=== PATIENT | female | born 1995 | race Caucasian/White ===

== ENCOUNTER 2016-12-03 20:38 | Observation (INO) | payer MEDICAID ==
[~2016-12-03] VITALS: Ht 160 cm; Wt 59.9 kg
[~2016-12-03 20:38] MED LIST: PREN-95 PO
[2016-12-03] MEDS ORDERED: TERBUTALINE SULFATE 1MG/ML VIAL SUBCUT NR (21:10)
[2016-12-03] MEDS ORDERED: LACTATED RINGERS 1,000 ML IV SCH (21:15)
[2016-12-03] MEDS ORDERED: CEFAZOLIN 2,000 MG in DEXT 5% WATER 100 ML IV SCH (21:30)
[2016-12-03 21:35] LABS: CLARITY URINE CLOUDY (CLEAR); COLOR URINE YELLOW (YELLOW); GLUCOSE URINE NEGATIVE (NEGATIVE); KETONES URINE TRACE (NEGATIVE); LEUKOCYTE ESTERASE URINE TRACE (NEGATIVE); NITRITE URINE NEGATIVE (NEGATIVE); OCCULT BLOOD URINE NEGATIVE (NEGATIVE); PH URINE 7.5 (4.5-8.0); PROTEIN URINE NEGATIVE (NEGATIVE); SPECIFIC GRAVITY URINE 1.014 (1.005-1.030)
[2016-12-03 21:45] LABS: AMORPHOUS SEDIMENT URINE 1+ /lpf; BACTERIA URINE 2+; RBC URINE 0-2 /hpf (0-2); SQUAMOUS EPITHELIAL CELL URINE 1+ /lpf (RARE/1+)
[2016-12-03 21:48] LABS: *AMPHETAMINES SCREEN URINE NEGATIVE (NEGATIVE); *BARBITURATES SCREEN URINE NEGATIVE (NEGATIVE); *BENZODIAZEPINES SCREEN URINE NEGATIVE (NEGATIVE); *COCAINE SCREEN URINE NEGATIVE (NEGATIVE); CANNABINOID URINE SCREEN NEGATIVE (NEGATIVE); ECSTASY MDMA SCREEN URINE NEGATIVE (NEGATIVE); METHADONE URINE SCREEN NEGATIVE (NEGATIVE); OPIATES URINE SCREEN NEGATIVE (NEGATIVE); PHENCYCLIDINE URINE SCREEN NEGATIVE (NEGATIVE)
== END 2016-12-03 23:45 | disposition home or self-care (01) ==
LOC: L&D 20:38
PROVIDERS: ADMIT Obstetrics & Gynecology; ATTEND Obstetrics & Gynecology
DX: O26.892 Other specified pregnancy related conditions, second trimester (principal); R10.9 Unspecified abdominal pain; Z3A.25 25 weeks gestation of pregnancy
CPT/HCPCS: 80305; 81001; 96361; 96365; 96372; 99281; G0378; J0690; J3105; J7120; 96360; J7060

== ENCOUNTER 2017-01-30 18:28 | Observation (INO) | payer MEDICAID ==
[~2017-01-30] VITALS: Ht 160 cm; Wt 61.7 kg
[2017-01-30 19:32] LABS: CLARITY URINE CLOUDY (CLEAR); COLOR URINE DARK YELLOW (YELLOW); GLUCOSE URINE NEGATIVE (NEGATIVE); KETONES URINE TRACE (NEGATIVE); LEUKOCYTE ESTERASE URINE 3+ (NEGATIVE); NITRITE URINE NEGATIVE (NEGATIVE); OCCULT BLOOD URINE NEGATIVE (NEGATIVE); PH URINE 5.5 (4.5-8.0); PROTEIN URINE TRACE (NEGATIVE); SPECIFIC GRAVITY URINE 1.031 (1.005-1.030)
== END 2017-01-30 20:36 | disposition home or self-care (01) ==
LOC: L&D 18:28
PROVIDERS: ADMIT Obstetrics & Gynecology; ATTEND Obstetrics & Gynecology
DX: O62.9 Abnormality of forces of labor, unspecified (principal); Z3A.34 34 weeks gestation of pregnancy
CPT/HCPCS: 76805; 76818; 81001; 99281; G0378

== ENCOUNTER 2017-05-02 20:20 | Emergency (ER) | payer OTHER ==
[~2017-05-02] VITALS: Ht 160 cm; Wt 54.0 kg
[2017-05-02 20:38] VITALS: BP 112/80
== END 2017-05-02 22:30 | disposition left against medical advice (07) ==
LOC: ER 20:21
DX: Z53.21 Procedure and treatment not carried out due to patient leaving prior to being seen by health care provider (principal)

== ENCOUNTER 2018-05-31 05:50 | Inpatient (IN) | payer MEDICAID ==
[~2018-05-31] VITALS: Ht 160 cm; Wt 58.1 kg
[~2018-05-31 05:50] MED LIST changes: +FERR325T23 GT; -PREN-95 PO
[2018-05-31] MEDS ORDERED: DEXT 5%/LR + PITOCIN 20UNITS/L 1,000 ML IV SCH ×3 (06:05→07:45)
[2018-05-31] MEDS: IBUPROFEN 800MG TABLET PO PRN ×2 (06:59→19:41)
[2018-05-31 07:26] LABS: BASOPHILS % 0.4 % (0.0-2.0); EOSINOPHILS % 0.4 % (0.0-5.0); HEMATOCRIT. 27.1 % (36.0-48.0); HEMOGLOBIN. 8.1 g/dL (12.0-16.0); LYMPHOCYTES % 13.7 % (20.0-50.0); MEAN CORPUSCULAR HEMOGLOBIN 19.3 pg (28.0-32.0); MEAN CORPUSCULAR VOLUME 64.5 fL (81.0-99.0); MEAN PLATELET VOLUME 9.7 fl (7.4-10.4); NEUTROPHILS % 79.5 % (40.0-76.0); PLATELET 264 x1000/uL (130-400); RED BLOOD CELL COUNT 4.21 mill/uL (4.2-5.4); RED CELL DISTRIBUTION WIDTH 19.5 % (11.6-14.6)
[2018-05-31 07:29] LABS: PARTIAL THROMBOPLASTIN TIME 25.7 sec (23.4-31.0); PROTHROMBIN TIME 9.9 sec (9.1-11.1)
[2018-05-31] MEDS ORDERED: METHYLERGONOVINE MALEATE 0.2 MG/ML IM PRN (07:30)
[2018-05-31] MEDS ORDERED: INFLUENZA VIRUS VACCINE(AFLURIA) 0.5ML SYR IM ONE (07:30)
[2018-05-31] MEDS ORDERED: TETANUS, DIPHTHERIA, PERTUSSIS VAC/PF 0.5ML (>7YR OLD) IM ONE (07:30)
[2018-05-31 08:15] VITALS: BP 110/69
[2018-05-31 09:15] VITALS: BP 103/61
[2018-05-31 09:43] LABS: HEPATITIS B SURFACE ANTIGEN NEGATIVE
[2018-05-31 09:55] LABS: PLATELET ESTIMATE NORMAL
[2018-05-31 12:08] LABS: CLARITY URINE CLEAR (CLEAR); COLOR URINE YELLOW (YELLOW); KETONES URINE NEGATIVE (NEGATIVE); LEUKOCYTE ESTERASE URINE TRACE (NEGATIVE); NITRITE URINE NEGATIVE (NEGATIVE); OCCULT BLOOD URINE 3+ (NEGATIVE); PH URINE 6.5 (4.5-8.0); PROTEIN URINE NEGATIVE (NEGATIVE); SPECIFIC GRAVITY URINE 1.011 (1.005-1.030); UROBILINOGEN URINE 0.2 E.U./dL (0.2-1.0)
[2018-05-31 13:37] LABS: *AMPHETAMINES SCREEN URINE NEGATIVE (NEGATIVE); *BARBITURATES SCREEN URINE NEGATIVE (NEGATIVE); *BENZODIAZEPINES SCREEN URINE NEGATIVE (NEGATIVE); *COCAINE SCREEN URINE NEGATIVE (NEGATIVE)
[2018-05-31 13:39] LABS: CANNABINOID URINE SCREEN NEGATIVE (NEGATIVE); METHADONE URINE SCREEN NEGATIVE (NEGATIVE); OPIATES URINE SCREEN NEGATIVE (NEGATIVE); PHENCYCLIDINE URINE SCREEN NEGATIVE (NEGATIVE)
[2018-05-31 16:10] VITALS: BP 106/64
[2018-05-31 22:00] VITALS: BP 111/67
[2018-06-01 05:49] VITALS: BP 112/68
[2018-06-01 06:38] LABS: BASOPHILS % 0.5 % (0.0-2.0); EOSINOPHILS % 0.6 % (0.0-5.0); HEMATOCRIT. 24.1 % (36.0-48.0); HEMOGLOBIN. 7.2 g/dL (12.0-16.0); LYMPHOCYTES % 23.9 % (20.0-50.0); MEAN CORPUSCULAR HEMOGLOBIN 19.5 pg (28.0-32.0); MEAN CORPUSCULAR VOLUME 64.8 fL (81.0-99.0); MEAN PLATELET VOLUME 9.2 fl (7.4-10.4); MONOCYTES % 7.1 % (2.0-8.0); NEUTROPHILS % 67.9 % (40.0-76.0); PLATELET 245 x1000/uL (130-400); RED BLOOD CELL COUNT 3.71 mill/uL (4.2-5.4); RED CELL DISTRIBUTION WIDTH 19.8 % (11.6-14.6)
[2018-06-01 07:35] VITALS: BP 99/58
[2018-06-01 15:58] VITALS: BP 95/59
[2018-06-01] MEDS ORDERED: MEDROXYPROGESTERONE ACETATE 150MG/ML VIAL IM NR (17:00)
[2018-06-01] MEDS: IBUPROFEN 800MG TABLET PO PRN (20:54)
[2018-06-01 22:00] VITALS: BP 101/58
[2018-06-02 04:45] VITALS: BP 104/62
[2018-06-02 08:23] VITALS: BP 106/70
== END 2018-06-02 09:20 | disposition home or self-care (01) | DRG 560 ==
LOC: L&D 05:50 → 7EST PP/OB 08:00
PROVIDERS: ADMIT Specialist; ATTEND Specialist
DX: O72.0 Third-stage hemorrhage (principal); D64.9 Anemia, unspecified; O99.02 Anemia complicating childbirth
CPT/HCPCS: 36415; 80305; 86592; 86703; 86762; 86850; 86900; 87340; 99281; J1050; J2590